=== PATIENT | female | born 1995 | race Asian ===

== ENCOUNTER 2017-12-30 16:28 | Emergency (ER) | payer OTHER ==
[~2017-12-30] VITALS: Ht 165.1 cm; Wt 48.6 kg
[2017-12-30 16:31] VITALS: TEMP 36.6; Ht 165.1 cm; Wt 48.6 kg
--- NOTE | 2017-12-30 17:53 | EMERGENCY ROOM VISIT NOTE ---
History First contact with patient: 17:30 Chief Complaint: VAGINAL BLEEDING Stated Complaint: VAGINAL BLEEDING, CARMPING History of Present Illness The patient is a 22 year old female presents to the emergency department complaining of vaginal bleeding. The patient speaks primarily Mandarin. A translation service was utilized for the history. Her last menstrual period was reportedly the 21st of last month. She has had intermittent bleeding over the last several months. The patient's also reports that she had a period last year that lasted 40 days. The patient is currently complaining of intermittent left lower quadrant abdominal pain. She has not taken anything for the pain. She is unsure if she is . Review of Systems 10 system review performed and negative unless noted in HPI or below Past Medical/Surgical History Otherwise healthy Social History Smoking Status: Never Smoker Physical Exam Vital Signs Date Time Temp Pulse Resp B/P (MAP) Pulse Ox O2 Delivery O2 Flow Rate FiO2 12/30/17 20:23 81 18 114/68 99 12/30/17 18:15 86 16 109/76 99 Room Air 12/30/17 16:31 36.6 103 18 120/78 98 Room Air Physical Exam VITALS: Vitals are noted on the nurse's note and reviewed by myself. Vital signs stable. GENERAL: 22-year-old female, in no acute distress, nondiaphoretic, well- developed well-nourished. SKIN: The skin was without rashes, erythema, edema, or bruising. HEAD: Normocephalic atraumatic. MOUTH: Mucous membranes moist. Tonsils are not enlarged. Pharynx without erythema or exudate. Uvula midline. Airway patent. Tongue does not deviate. NECK: Supple without nuchal rigidity. No lymphadenopathy. Cervical spine is nontender. No JVD. HEART: Regular rate and rhythm without murmurs gallops or rubs. LUNGS: Clear to auscultation bilaterally without wheezes, rales or rhonchi. No accessory muscle use. ABDOMEN: Positive bowel sounds x 4.Soft, tenderness to palpation in the left lower quadrant, without organomegaly. No guarding or rebound tenderness. MUSCULOSKELETAL: No muscle atrophy, erythema, or edema noted. Strength 5/5 throughout. NEURO: Patient was alert and oriented to person place and time. Normal sensation to touch. No focal neurological deficits. Medical Decision & Procedures ER Provider Diagnostic Interpretation: pelvis USIMPRESSION: No significant abnormality identified within the pelvis. Normal ovaries and uterus. Electronically signed by: Alexis Hernández M.D. 12/30/2017 7:30 PM Dictated Date/Time: 12/30/2017 7:29 PM Laboratory Results 12/30/17 18:10 Red Blood Count 4.07, Mean Corpuscular Volume 90.7, Mean Corpuscular Hemoglobin 31.2, Mean Corpuscular Hemoglobin Concent 34.4, Mean Platelet Volume 10.2, Neutrophils (%) (Auto) 50.6, Lymphocytes (%) (Auto) 42.2, Monocytes (%) (Auto) 5.7, Eosinophils (%) (Auto) 1.0, Basophils (%) (Auto) 0.3, Neutrophils # (Auto) 3.11, Lymphocytes # (Auto) 2.59, Monocytes # (Auto) 0.35, Eosinophils # (Auto) 0.06, Basophils # (Auto) 0.02 12/30/17 18:10 Test 12/30/17 18:10 White Blood Count 6.14 K/uL (4.8-10.8) Red Blood Count 4.07 M/uL (4.2-5.4) Hemoglobin 12.7 g/dL (12.0-16.0) Hematocrit 36.9 % (37-47) Mean Corpuscular Volume 90.7 fL (80-100) Mean Corpuscular Hemoglobin 31.2 pg (25-34) Mean Corpuscular Hemoglobin Concent 34.4 g/dl (32-36) Platelet Count 240 K/uL (130-400) Mean Platelet Volume 10.2 fL (7.4-10.4) Neutrophils (%) (Auto) 50.6 % Lymphocytes (%) (Auto) 42.2 % Monocytes (%) (Auto) 5.7 % Eosinophils (%) (Auto) 1.0 % Basophils (%) (Auto) 0.3 % Neutrophils # (Auto) 3.11 K/uL (1.4-6.5) Lymphocytes # (Auto) 2.59 K/uL (1.2-3.4) Monocytes # (Auto) 0.35 K/uL (0.11-0.59) Eosinophils # (Auto) 0.06 K/uL (0-0.5) Basophils # (Auto) 0.02 K/uL (0-0.2) RDW Standard Deviation 37.7 fL (36.4-46.3) RDW Coefficient of Variation 11.5 % (11.5-14.5) Immature Granulocyte % (Auto) 0.2 % Immature Granulocyte # (Auto) 0.01 K/uL (0.00-0.02) Prothrombin Time 10.9 SECONDS (9.0-12.0) Prothromb Time International Ratio 1.0 (0.9-1.1) Anion Gap 5.0 mmol/L (3-11) Est Creatinine Clear Calc Drug Dose 92.4 ml/min Estimated GFR () 135.9 Estimated GFR (Non- 117.2 BUN/Creatinine Ratio 24.8 (10-20) Calcium Level 9.1 mg/dl (8.5-10.1) Total Bilirubin 0.6 mg/dl (0.2-1) Aspartate Amino Transf (AST/SGOT) 15 U/L (15-37) Alanine Aminotransferase (ALT/SGPT) 19 U/L (12-78) Alkaline Phosphatase 57 U/L (45-117) Total Protein 8.1 gm/dl (6.4-8.2) Albumin 4.6 gm/dl (3.4-5.0) Globulin 3.5 gm/dl (2.5-4.0) Albumin/Globulin Ratio 1.3 (0.9-2) Thyroid Stimulating Hormone (TSH) 1.960 uIu/ml (0.300-4.500) Human Chorionic Gonadotropin, Qual NEG (NEG) ED Course Patient was seen and examined Vital signs including blood pressure were reviewed medications list was verified with patient Labs were obtained, and a saline lock was established Imaging was performed Upon reevaluation, the patient was resting comfortably. I thoroughly discussed the results with the patient and the patient's . They voiced understanding. They were comfortable being discharged home. The case was also discussed with case management I reviewed discharge instructions the patient. They voiced understanding and had no further questions. Medical Decision Differential diagnosis: Menorrhagia, uterine fibroids, ectopic , threatened miscarriage, diverticulitis, ureteral stone This patient is a 22-year-old female that presents to the emergency department complaining of abnormal, intermittent vaginal bleeding and left lower abdominal pain. On exam, she had mild tenderness in the left lower quadrant. There was no guarding or rebound tenderness. I do not suspect an acute abdomen. she is not . There is no leukocytosis. She is not anemic. Her ultrasound was unremarkable. The etiology of her bleeding is unclear. I believe she needs close follow-up with [facility]. Case management will make the patient a follow-up appointment tomorrow. The patient and the patient's are comfortable with this plan. They will return with any new or worsening symptoms This chart was completed in part utilizing [employer] Speech Voice Recognition software. Attempts were made to minimize the grammatical errors, random word insertions, pronoun errors and incomplete sentences. Any formal questions or concerns about the content, text or information contained within the body of this dictation should be directly addressed to the provider for clarification. Medication Reconcilliation Current Medication List: was personally reviewed by me Blood Pressure Screening Patient's blood pressure: Normal blood pressure Impression Primary Impression: Abnormal vaginal bleeding Departure Information Dispostion Home / Self-Care Condition GOOD Referrals No Doctor, Assigned (PCP) Marissa Morris M.D. Patient Instructions My [facility] Additional Instructions You have been evaluated in the emergency department for abnormal vaginal bleeding and left lower abdominal pain. An ultrasound did not show any abnormalities with the uterus or ovaries. Blood work also was normal. It is very important to follow-up with an [facility] doctor for further evaluation. The lining caser will make the appointment for you, and notify you by phone Please do not hesitate to return to the emergency department with any new, worsening or concerning symptoms; especially, heavy bleeding (greater than 2 pads per hour), worsening abdominal pain or fever It was a pleasure participating in your care today
[2017-12-30 18:20] LABS: BASO % 0.3 %; BASO ABS # 0.02 K/uL (0-0.2); EOS ABS # 0.06 K/uL (0-0.5); HEMATOCRIT 36.9 % (37-47); HEMOGLOBIN 12.7 g/dL (12.0-16.0); IG# 0.01 K/uL (0.00-0.02); LYMPH % 42.2 %; LYMPH ABS # 2.59 K/uL (1.2-3.4); MEAN CELL VOLUME 90.7 fL (80-100); MEAN CORPUSCULAR HEMOGLOBIN 31.2 pg (25-34); MEAN CORPUSCULAR HGB CONC 34.4 g/dl (32-36); MEAN PLATELET VOLUME 10.2 fL (7.4-10.4); MONO % 5.7 %; MONO ABS # 0.35 K/uL (0.11-0.59); NEUT % 50.6 %; NEUT ABS # 3.11 K/uL (1.4-6.5); PLATELET COUNT 240 K/uL (130-400); RED CELL DISTRIBUTION WIDTH CV 11.5 % (11.5-14.5); RED CELL DISTRIBUTION WIDTH SD 37.7 fL (36.4-46.3); WHITE BLOOD COUNT 6.14 K/uL (4.8-10.8)
[2017-12-30 18:39] LABS: ALBUMIN 4.6 gm/dl (3.4-5.0); CALCIUM 9.1 mg/dl (8.5-10.1); CREATININE 0.72 mg/dl (0.60-1.20); POTASSIUM 3.7 mmol/L (3.5-5.1)
[2017-12-30 18:49] LABS: TOTAL PROTEIN 8.1 gm/dl (6.4-8.2)
--- NOTE | 2017-12-30 19:32 | DIAGNOSTIC IMAGING REPORT ---
PELVIC COMPLETE NON OB CLINICAL HISTORY: 22 years-old Female presenting with LLQ pain vaginal bleeding, G0, P0, last menstrual period 12/02/2017, irregular periods with 60 day cycles, not , pelvic discomfort. TECHNIQUE: Real-time grayscale and color and spectral Doppler ultrasound imaging of the pelvis was performed using a transabdominal probe. COMPARISON: None. FINDINGS: Uterus: Normal. Anteverted. The uterus measures 7.6 x 3.0 x 4.8 cm. Endometrial stripe measures 5 mm in thickness. Endometrium normal-appearing. Cervix contain a nabothian cysts. Right adnexa: Right ovary normal. Right ovary measures 4.1 x 2.9 x 2.3 cm. Normal color Doppler flow and arterial and venous waveforms within the ovarian parenchyma. Left adnexa: Left ovary normal. Left ovary measures 3.6 x 2.7 x 1.9 cm. Normal color Doppler flow and arterial and venous waveforms within the ovarian parenchyma. Other: No free fluid. IMPRESSION: No significant abnormality identified within the pelvis. Normal ovaries and uterus. Electronically signed by: Alexis Hernández M.D. 12/30/2017 7:30 PM Dictated Date/Time: 12/30/2017 7:29 PM
[2017-12-30 20:23] VITALS: BP 114/68; PULSE 81; O2SAT 99
== END 2017-12-30 20:24 | disposition home or self-care (01) ==
LOC: C.EDB 16:30
DX: N93.9 Abnormal uterine and vaginal bleeding, unspecified (principal)

== ENCOUNTER → 2018-01-04 | Outpatient (CLI) | payer OTHER | END | disposition home or self-care (01) | LOC: C.LABSPEC 17:40 | PROVIDERS: ATTEND Obstetrics & Gynecology | DX: Z87.42 Personal history of other diseases of the female genital tract (principal); N93.8 Other specified abnormal uterine and vaginal bleeding ==

== ENCOUNTER → 2018-01-04 | Outpatient (CLI) | payer OTHER | END | disposition home or self-care (01) | LOC: C.PAPS 09:58 | PROVIDERS: ATTEND Obstetrics & Gynecology | DX: N93.8 Other specified abnormal uterine and vaginal bleeding (principal); Z87.42 Personal history of other diseases of the female genital tract ==